=== PATIENT | female | born 1980 | race Caucasian/White ===

== ENCOUNTER 2019-12-30 17:13 | Outpatient (CLI) | payer BC, SELFPAY ==
--- NOTE | ~2019-12-30 | XR_ITS ---
EXAMINATION: XR ankle LT min 3V DATE: 12/30/2019 17:50 INDICATION: Lateral ankle pain and swelling TECHNIQUE: Anteroposterior, lateral, mortise, and additional oblique view of the ankle were obtained. COMPARISON: None. FINDINGS: There is no fracture, dislocation, or subluxation. The joint spaces and soft tissues are un remarkable. A plantar calcaneal enthesophyte is noted. The bones are otherwise unremarkable. IMPRESSION: 1. No acute osseous abnormality. Reviewed, dictated and finalized at location A.
--- NOTE | ~2019-12-30 | XR_ITS ---
EXAMINATION: XR foot LT standing 2V INDICATION: Left foot pain TECHNIQUE: Two views of the left foot are obtained. COMPARISON: None available FINDINGS: There is no fracture, dislocation, or subluxation. A plantar calcaneal enthesophyte is note d. The visualized osseous structures are otherwise unremarkable. There is mild dorsal soft tissue swe lling of the foot overlying the distal metatarsals. IMPRESSION: 1. Mild soft tissue swelling without acute osseous abnormality. Reviewed, dictated and finalized at location A.
== END 2019-12-30 17:14 | disposition home or self-care (01) ==
PROVIDERS: PCP Nurse Practitioner; Visit Provider Nurse Practitioner
DX: M25.473 Effusion, unspecified ankle (principal); M79.89 Other specified soft tissue disorders
CPT/HCPCS: 73610; 73620

== ENCOUNTER 2020-05-23 16:51 | Outpatient (CLI) | payer BC, SELFPAY ==
[2020-05-23 17:22] LABS: Rheumatoid Factor < 8.6 IU/ML (<12)
[2020-05-23 17:23] LABS: CRP < 0.5 mg/dL (<1.0); Uric Acid 3.8 mg/dL (2.5-7.5)
[2020-05-23 17:30] LABS: Erythrocyte Sedimentation Rate 7 mm/hr (0-20)
[2020-05-25 21:36] LABS: HLA B27 Positive (Negative)
== END 2020-05-23 16:52 | disposition home or self-care (01) ==
LOC: ANHLAB 16:53
PROVIDERS: PCP Nurse Practitioner; Visit Provider Podiatrist Foot & Ankle Surgery
DX: M19.072 Primary osteoarthritis, left ankle and foot (principal)
CPT/HCPCS: 36415; 84550; 85652; 86038; 86140; 86430; 86812

== ENCOUNTER → 2020-06-14 15:10 | Outpatient (CLI) | payer BC, SELFPAY ==
--- NOTE | ~2020-06-14 | MR_ITS ---
EXAMINATION: MR foot LT wo con DATE: 06/14/2020 16:10 INDICATION: Left foot pain. TECHNIQUE: Magnetic resonance imaging (MRI) of the left foot was performed without intravenous contra st. Sequences included sagittal T1-weighted FSE and STIR FSE, long-axis PD-weighted FS FSE and PD-brant ghted FSE, and short-axis PD-weighted FS FSE and T1-weighted FSE. COMPARISON: Left foot radiographs 12/30/2019 FINDINGS: There is mild hallux valgus. No fracture. There is mild osteoarthritis of first metatarsoph alangeal joint. Lisfranc ligament is normal. The flexor and extensor tendons are normal. The musculat ure is normal. IMPRESSION: 1. Mild hallux valgus. 2. Mild osteoarthritis of first metatarsophalangeal joint. Reviewed, dictated and finalized at location B. [employer]
== END ==
PROVIDERS: Visit Provider Podiatrist Foot & Ankle Surgery
DX: M84.375A Stress fracture, left foot, initial encounter for fracture (principal); M20.12 Hallux valgus (acquired), left foot; M19.072 Primary osteoarthritis, left ankle and foot
CPT/HCPCS: 73718

== ENCOUNTER → 2021-07-20 09:41 | Outpatient (CLI) | payer BC, SELFPAY ==
[2021-07-21 23:20] LABS: SARS-CoV-2 RNA PCR Negative
== END ==
PROVIDERS: PCP Hospitalist; Visit Provider Nurse Practitioner
DX: J02.9 Acute pharyngitis, unspecified (principal); Z20.822 Contact with and (suspected) exposure to COVID-19
CPT/HCPCS: C9803; U0003; U0005

== ENCOUNTER → 2024-12-14 16:12 | Outpatient (REF) | payer BC, SELFPAY ==
--- NOTE | 2024-12-14 16:12 | S_PTH ---
PATIENT: Lula Mckenzie LOC: [facility] U#:[id number] AGE/SX: 44/F ROOM: RE12/14/[address]: Carolina Thorpe MD : 1980 BED: DIS: SPEC #: [id number] RECD: 12/15/24 07:52 STATUS: KYRA REPia #: [id number] SARAI: 12/14/24 16:[address]: Carolina Thorpe DEPT: [facility] Surgical RECD BY: Dana Zhang ENTERED: 12/15/24 07:53 SP TYPE: Surgical OTHR DR: Adelina QuilesMD Tissues: A - Skin Procedures: Hematoxylin and Eosin Stain Gross and Microscopic Level 4
== END ==
LOC: ANHLAB 16:12
PROVIDERS: PCP Hospitalist; Visit Provider Plastic Surgery
DX: S60.459A Superficial foreign body of unspecified finger, initial encounter (principal); X58.XXXA Exposure to other specified factors, initial encounter
CPT/HCPCS: 88305